=== PATIENT | female | born 1985 ===

== ENCOUNTER 2025-09-06 09:15 | Emergency (ER) | payer MEDICAID, OTHER, SELFPAY ==
--- NOTE | ~2025-09-06 | XR_ITS ---
EXAMINATION: XR KNEE, RIGHT CLINICAL INFORMATION: pain COMPARISON: None available. TECHNIQUE: Four views of the right knee. FINDINGS: There is no joint effusion. There is mild narrowing of the medial joint compartment. There is mild medial subluxation of distal femur relative to tibia. Small marginal osteophytes are present along the tibial plateau and patella. No acute fracture or deformity is recognized. XR/XR knee RT 4V IMPRESSION: Mild osteoarthritis. Electronically signed by: Ki Park MD 09/06/2025 10:17 AM [facility]
[2025-09-06 09:57] VITALS: BP 139/89; PULSE 70; RESP 20; TEMP 35.9; O2SAT 100; BMI 53.2
--- NOTE | 2025-09-06 10:00 | ED.GENADULT ---
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 Her right knee pain is localized to the anterior aspect, no radiation. Denies pain with flexion or extension of the right knee. Denies calf pain. Her back pain is localized to her entire low back, no radiation down extremities. Denies numbness/tingling/weakness of the lower extremities, saddle anesthesia, bowel or bladder incontinence or retention, urinary symptoms. Denies any injury/trauma. Denies heavy lifting. Denies history of knee or spinal surgery. Denies history of IV drug use. Denies history gout, diabetes. She has not been evaluated for this in the past. She has been [place] with [place] relief. Her last dose was 2 days ago. She denies any pain at present secondary to taking pregabalin 2 days ago. Denies fever, chills. Related Data Previous Rx's ?Medication ?Instructions ?Recorded cyclobenzaprine 5 mg tablet 5 mg PO TID PRN muscle pain 3 days 09/06/25 #9 tabs diclofenac sodium 1 % topical gel 4 g topical QID #100 grams 09/06/25 lidocaine 5 % topical patch See Rx Instructions topical 09/06/25 .COMPLEX #15 ea prednisone 20 mg tablet 40 mg (2 x 20 mg) PO DAILY 5 days 09/06/25 #10 tabs Allergies Allergy/AdvReac Type Severity Reaction Status Date / Time No Known Allergies Allergy Verified 09/06/25 10:01 Review of Systems Review of Systems: Yes all other systems are reviewed and are negative PMFSH Past Medical History Attestation statement: The following information was validated with the patient. Source: old records reviewed and nursing notes reviewed Social History Social History Advance Directives: No Advance Directives Information Provided: Yes Do you have a plan to hurt others: No Plan Physical Exam ED Vital Signs: Vital Signs - 24 hr 09/06/25 09:57 09/06/25 13:24 Temperature 96.7 F L 96.7 F L Pulse Rate 70 70 Respiratory Rate 20 20 Blood Pressure 139/89 139/89 Pulse Oximetry 100 100 Oxygen Delivery Method Room Air Room Air BMI result Body Mass Index 53.2 vital signs stable General: obese female, NAD Skin: Warm, dry, intact. No rashes or lesions. Head: Normocephalic, atraumatic. EENT: Hearing is intact b/l. Conjunctiva clear. PERRLA. EOM intact. Moist mucous membranes.? Cardiac: Chest wall symmetric. RRR Lungs: Normal respiratory effort without accessory muscle use. CTA bilaterally Back: No midline spinous tenderness or step-off deformity. There is bilateral lumbar paraspinal muscle tenderness to palpation with mild spasm, no palpable fluctuance, deformity. No overlying skin changes. Ext: + exam somewhat limited due to patient's body habitus. There is no deformity, swelling, overlying skin changes, wounds noted to right knee. No reproducible tenderness. Full ROM intact with extension/flexion without reported pain. No calf tenderness. No tenderness to posterior knee. 2+ DP pulse intact. Neuro: AOx3. Normal speech. Ambulating with steady gait. Course Course Course Narrative: Rapid medical examination performed in triage by Kamila Carrasquillo PA-C: Patient is a 40 year old assigned female at presenting to the emergency department with right knee pain and low back pain. Detailed physical exam and review of systems are deferred to the line ordering clinician. Imaging ordered. Patient placed back in the waiting room pending room availability and results. Reevaluation(s) Reevaluation #1: xrs right knee showing arthritis. her exam is quite benign and consistent with arthritic changes/ muscular lumbar back pain. Will dc home w/ Voltaren, prednisone, lidocaine patches and Flexeril. Symptoms are likely exacerbated by patient's body habitus. Discussed establishing care with weight management, referral provided. Patient has remained stable throughout ED visit today. Discussed worrisome signs and symptoms and when to return to the ED. All questions answered at this time. Patient is agreeable with disposition and stable for discharge. Medical Decision Making Medical Decision Making MDM Narrative: 40 year old female presents to the ED today for evaluation of right knee pain and lower back pain x months. vital signs stable, she is well appearing and in NAD. exam somewhat limited due to patient's body habitus. There is no deformity, swelling, overlying skin changes, wounds noted to right knee. No reproducible tenderness. Full ROM intact with extension/flexion without reported pain. No calf tenderness. No tenderness to posterior knee. 2+ DP pulse intact. No midline spinous tenderness or step-off deformity. There is bilateral lumbar paraspinal muscle tenderness to palpation with mild spasm, no palpable fluctuance, deformity. No overlying skin changes. Differential diagnosis includes arthritis, bursitis, tendonitis, gout, pseudogout, MSK sprain/strain, lumbar spasm Unlikely DVT, neurovascular compromise, threat to limb, compartment syndrome, cord compression, Guillain-Elberta, epidural abscess, cauda equina. Plan for imaging and disposition. Differential Diagnosis Differential Diagnoses: The differential diagnosis associated with the presentation includes as above. Admission/Observation not indicated. Independent Interpretation I performed an independent interpretation of an: Plain X-Ray Interpretation: xr right knee without fracture Radiology Impression Discussion of test interpretation with radiology: I have reviewed the radiologist's reading. Radiologist Impression: Procedure(s): XR knee RT 4V Accession Number(s): [id number] cc: Kamila Carrasquillo; Physician,Unknown ~ Reason for Exam: pain EXAMINATION: XR KNEE, RIGHT CLINICAL INFORMATION: pain COMPARISON: None available. TECHNIQUE: Four views of the right knee. FINDINGS: There is no joint effusion. There is mild narrowing of the medial joint compartment. There is mild medial subluxation of distal femur relative to tibia. Small marginal osteophytes are present along the tibial plateau and patella. No acute fracture or deformity is recognized. XR/XR knee RT 4V IMPRESSION: Mild osteoarthritis. Electronically signed by: Ki Park MD 09/06/2025 10:17 AM [facility] [place] Prescription Management I considered prescription management with: Pain Medication and Other (prednisone) Chronic Conditions Patient?s care impacted by: Other (arthritis, obesity) Social Determinants Patient?s care significantly limited by Social Determinants of Health including: Other Social Determinant of Health Critical Care Time Critical Care Time Critical Care Time: No Discharge Plan Discharge Clinical Impression: Arthritis of right knee, Lumbar back pain Patient Disposition: Home, Self-Care Instructions: Osteoarthritis (ED), Lower Back Exercises (ED) Additional Instructions: You were evaluated in the ED today for chronic right knee and low back pain. Your x-rays reveal arthritis. I am sending diclofenac gel to your pharmacy. You may apply this to your right knee for pain relief. Prednisone as a steroid. Take this as prescribed over the next 5 days to help with inflammation. Flexeril is a muscle relaxer. Take this at night as needed for low back pain. Use this with caution as this can make you sleepy. Do not operate machinery/drive/consume alcohol while taking this medication. Lidocaine patches have been sent to your pharmacy. Apply these to painful areas. Follow up with your primary care provider. I also recommend following up with a surveillance systems engineer for weight management as this can contribute to your arthritic pain. Return with any new or worsening symptoms. In the case of an emergency call 911. Prescriptions: New prednisone 20 mg tablet 40 mg PO DAILY 5 Days Qty: 10 0RF cyclobenzaprine 5 mg tablet 5 mg PO TID PRN (Reason: muscle pain) 3 Days Qty: 9 0RF diclofenac sodium 1 % gel 4 g topical QID Qty: 100 0RF Rx Instructions: apply to single knee, ankle, foot; for foot includes sole/toes/top of foot lidocaine 5 % adhesive patch,medicated See Rx Instructions .ROUTE .COMPLEX Qty: 15 0RF Rx Instructions: leave on most painful area for up to 12 hrs Referrals: [facility] [place] [facility] [Provider Group, Bariatric Surgery] [facility] [place] [Provider Group, Family Practice] Physician,Unknown J [Primary Care Provider, Medical] Interventions: ED Discharge Assessment Last Done: 09/06/25 13:24 Discharge Date/Time: 09/06/25 13:38 Print Language: Arabic
[2025-09-06 13:24] VITALS: BP 139/89; PULSE 70; RESP 20; TEMP 35.9; O2SAT 100
== END 2025-09-06 13:38 | disposition home or self-care (01) ==
PROVIDERS: Emergency Provider Emergency Medicine
DX: M17.11 Unilateral primary osteoarthritis, right knee (principal); M54.50 Low back pain, unspecified
CPT/HCPCS: 73564; 99282; 99283

== ENCOUNTER → 2025-09-06 10:00 | Outpatient (BNV) | payer SELFPAY | PROVIDERS: Visit Provider Radiology Diagnostic Radiology | DX: M17.11 Unilateral primary osteoarthritis, right knee (principal) | CPT/HCPCS: 73564 ==